=== PATIENT | female | born 1975 | race Caucasian/White ===

== ENCOUNTER 2021-04-14 11:00 | Outpatient (RCR) | payer OTHER, SELFPAY ==
[2021-01-10 09:07] VITALS: PULSE 99
[2021-01-20 19:02] LABS: Glucose Point of Care 329 mg/dl (65-105)
--- NOTE | 2021-01-29 15:21 | PCCPR ---
Sent home not feeling well/lightheadedness and dizziness Kishor here for education class however states the heat was making feel ill. she described as light headed and dizzy. BS 151 and her B/P was 106/64. Gave her a Kandace mist to sip on which didn't help. States the A/c out on their car and ride here is 40 + min. Sent her home no exercise today.
[2021-02-10 17:42] LABS: Glucose Point of Care 78 mg/dl (65-105)
[2021-02-10 17:42] LABS: Glucose Point of Care 75 mg/dl (65-105)
[2021-02-10 17:42] LABS: Glucose Point of Care 92 mg/dl (65-105)
[2021-02-10 17:42] LABS: Glucose Point of Care 76 mg/dl (65-105)
[2021-02-12 16:07] LABS: Glucose Point of Care 225 mg/dl (65-105)
[2021-02-17 16:21] LABS: Glucose Point of Care 166 mg/dl (65-105)
--- NOTE | 2021-02-20 11:54 | PCCPR ---
Absent due to high eat warning
[2021-02-24 15:13] LABS: Glucose Point of Care 379 mg/dl (65-105)
--- NOTE | 2021-03-26 09:57 | PCCPR ---
Patient called to inform the cardiac rehab department that she'll be absent today due to an eye appointment that she had forgotten about. Patient stated she will be here tomorrow.
[2021-04-02 17:29] LABS: Glucose Point of Care 200 mg/dl (65-105)
[2021-04-03 11:16] LABS: Glucose Point of Care 412 mg/dl (65-105)
--- NOTE | 2021-04-03 11:17 | PCCPR ---
Elevated BS sent home Elisabeth here today for her regular class. States her BS was over 300 in the Car. BS rechecked with our meter and was 412. States she had a can of regular soda and was making candy for an event and sampled that also prior to arrival. Sent home due BS greater than our 300 limit.
== END 2021-04-14 14:12 | disposition home or self-care (01) ==
LOC: ANHCPREHAB 11:00
DX: I21.4 Non-ST elevation (NSTEMI) myocardial infarction (principal)
CPT/HCPCS: 82948; 93798

== ENCOUNTER 2023-09-02 12:52 | Observation (INO) | payer OTHER, SELFPAY ==
--- NOTE | ~2023-09-02 | XR_ITS ---
EXAMINATION: XR chest 2V DATE: 09/02/2023 20:37 INDICATION: Cough. Bilateral lower extremity swelling. TECHNIQUE: Frontal and lateral views of the chest were obtained on 3 radiographs. COMPARISON: None. FINDINGS: There are interstitial opacities in the lower lung zones. No pleural effusion or pneumothor ax. Cardiomegaly is noted. There is a left chest pacer/defibrillator with lead in right ventricle. IMPRESSION: 1. Interstitial opacities in the lower lung zones, consistent with mild atelectasis versus mild pulmo nary edema. 2. Cardiomegaly. Reviewed, dictated and finalized at location E. CTOR DATA ARCHITECTURE IMPRESSION: 1. Interstitial opacities in the lower lung zones, consistent with mild atelect asis versus mild pulmonary edema. 2. Cardiomegaly.
--- NOTE | ~2023-09-02 | NM_ITS ---
EXAMINATION: NM lung vent and perfusion DATE: 09/03/2023 12:40 INDICATION: Dyspnea with exertion. Elevated troponin. TECHNIQUE: 24.5 mCi xenon-133 by inhalation and 5.5 mCi Tc-99m MAA by intravenous route. Scintigraph ic images of the chest were obtained. COMPARISON: Chest radiograph dated 09/02/2023 FINDINGS: There is homogeneous radiotracer activity throughout the lungs on the single breath ventilation seque nce. There are no unmatched perfusion defects on the posterior scintigrams. Moderate-sized perfusion defect along the basilar right lower lobe and right middle lobe with matched opacities on the radiogr aphs. There is also a large perfusion defect at the lingula which appears significantly larger than t he corresponding radiographic opacity. Left pectoral photopenic defect corresponding to the partially supply for a cardiac pacemaker/defibrillator. IMPRESSION: 1. Nondiagnostic (low or intermediate probability) for pulmonary embolism. Reviewed, dictated and finalized at location A. O DIVISION LIEUTENANT
--- NOTE | ~2023-09-02 | US_ITS ---
EXAMINATION: US renal BI DATE: 09/03/2023 12:13 INDICATION: Acute kidney injury TECHNIQUE: Multiple grayscale and Doppler ultrasound images of the kidneys were obtained. COMPARISON: None. FINDINGS: The right kidney measures 10.4 x 4.4 x 4.4 cm. The left kidney measures 10.6 x 4.5 x 4.1 cm . The kidneys demonstrate normal parenchymal echogenicity. There is no hydronephrosis. The bladder is normal. IMPRESSION: 1. Normal kidneys without hydronephrosis. Reviewed, dictated and finalized at location B. PATIONAL PHYSICIAN
--- NOTE | ~2023-09-02 | US_ITS ---
EXAMINATION: US venous doppler [facility] DATE: 09/02/2023 19:46 INDICATION: Lower limb swelling. TECHNIQUE: Grayscale ultrasound images without and with compression and Doppler ultrasound images of the bilateral lower extremity veins were obtained. COMPARISON: None. FINDINGS: The visualized portions of right common femoral vein, profunda (deep) femoral vein, femoral vein, pop liteal vein, peroneal veins, posterior tibial veins, and greater saphenous vein outflow are patent. The visualized portions of left common femoral vein, profunda femoral vein, femoral vein, popliteal v ein, peroneal veins, posterior tibial veins, and greater saphenous vein outflow are patent. IMPRESSION: 1. No deep venous thrombosis. Reviewed, dictated and finalized at location E. Y HEAD START TEACHER
[2023-09-02 13:27] VITALS: BP 133/93; PULSE 105; RESP 16; TEMP 36.7; O2SAT 100
--- NOTE | 2023-09-02 17:52 | ECG_ITS ---
Measurements Intervals [place] Rate: 97 P: 52 FL: 151 QRS: -38 QRSD: 102 T: 101 QT: 378 QTc: 481 Interpretive Statements SINUS RHYTHM LEFT ATRIAL ENLARGEMENT [-0.15mV P WAVE IN V1/V2] MARKED LEFT AXIS DEVIATION [QRS AXIS < -30] PREVIOUS ANTERIOR AND INFERIOR mYOCARDIAL INFARCTION ABNORMAL ECG NO PREVIOUS ECG AVAILABLE FOR COMPARISON Electronically Signed On 09-03-2023 7:08:52 NUTS AND BOLTS ASSEMBLER by Craig Jaeger M.D.
--- NOTE | 2023-09-02 17:57 | ED.EXTPRO ---
HPI - Extremity Problem General Chief complaint: Extremity Problem,Nontraumatic Stated complaint: swelling to legs Time Seen by Provider: 09/02/23 17:42 Source: patient Mode of arrival: ambulatory Limitations: no limitations History of Present Illness HPI Narrative: Patient is a 47-year-old female, past medical history of CAD, pacemaker/AICD, CKD, who presents to ED with report of bilateral lower extremity swelling. Patient is somewhat a poor historian. Patient reports she has been dealing with swelling in her lower extremities for last 1 month intermittently. She states she was admitted twice to [facility] within the last month, but states they did nothing for her. She states she was given Lasix while in the hospital, but this was discontinued. She is not sure why. She does not know if she has a history CHF. Reportedly sees several different cardiologists at [facility]. Patient has tried elevating her legs and staying off of them as much as possible, but reports worsening swelling over the last 1 week. Reports pain with prolonged walking, mild SOB w/ exertion. Denies CP, cough or cold sx's, fevers. Related Data Home Medications Medication Instructions Recorded Confirmed aspirin 81 mg tablet 81 mg PO DAILY 01/10/21 01/10/21 carvedilol 25 mg tablet 25 mg PO BID 01/10/21 01/10/21 furosemide 20 mg tablet 20 mg PO DAILY 01/10/21 01/10/21 Allergies Allergy/AdvReac Type Severity Reaction Status Date / Time No Known Allergies Allergy Verified 09/02/23 21:45 Review of Systems Review of Systems: CONSTITUTIONAL: Denies fever, chills, or sweats. ENT: Denies rhinorrhea, congestion, sore throat. CARDIOVASCULAR: See HPI. RESPIRATORY: See HPI GASTROINTESTINAL: Denies abdominal pain, nausea, vomiting. MUSCULOSKELETAL: see HPI. NEUROLOGIC: Denies headache, dizziness, numbness, or weakness. All systems reviewed & are unremarkable except as noted in HPI and below PMFSH Family History Family History Mother Throat cancer Grandparent Diabetes mellitus Sibling Diabetes mellitus Multiple sclerosis Social History Social History Smoking status: Never smoker Exam Narrative: GENERAL: Appears older than stated age, well-nourished, non-toxic, in no acute distress. HEAD: Normocephalic, atraumatic. RESPIRATORY: Airway patent, respirations nonlabored. Coarse lung sounds throughout. Frequent coughing on exam. CARDIOVASCULAR: Borderline tachycardic with regular rhythm without murmurs, rubs, or gallops. Pedal pulses intact, symmetric bilaterally. ABDOMINAL: Soft, nontender, nondistended. Normoactive BS. MUSCULOSKELETAL: Moves all extremities. No gross deformities. 1-2+ pitting edema of lower extremities. No significant tenderness throughout lower extremities. Sensation intact. No erythema, warmth, wounds. Diffuse generalized weakness. SKIN: Warm, dry, normal color. NEURO: A&O X3. Speech clear. Cranial nerves II-XII grossly intact. No ataxic movements. PSYCHIATRIC: Appropriate mood and affect. Normal interaction. Course Vital Signs Vital signs: Vital Signs Temperature 98.0 F 09/02/23 13:27 Pulse Rate 105 H 09/02/23 13:27 Respiratory Rate 16 09/02/23 13:27 Blood Pressure 133/93 H 09/02/23 13:27 Pulse Oximetry 100 09/02/23 13:27 Oxygen Delivery Room Air 09/02/23 13:27 Temperature 98.0 F 09/02/23 13:27 Pulse Rate 98 09/03/23 01:54 Respiratory Rate 15 09/03/23 01:54 Blood Pressure 138/101 H 09/03/23 01:54 Pulse Oximetry 100 09/03/23 01:54 Oxygen Delivery Room Air 09/02/23 13:27 MDM - Extremity (Nontraumatic) MDM Narrative Medical decision making narrative: Patient presented to the ED with 1 month hx of lower extremity edema, worsening over last 1 week. Reportedly recently admitted at outside hospital for similar. Unknown what occurred while
[2023-09-02 19:27] LABS: Magnesium 2.3 mg/dL (1.6-2.3)
[2023-09-02 19:28] LABS: INR 1.1
[2023-09-02 19:29] LABS: Partial Thromboplastin Time 25.8 SECONDS (22.3-36.8)
[2023-09-02 19:32] LABS: Alanine Aminotransferase 25 U/L (6-35); Albumin Level 3.3 g/dL (3.5-5.1); Alkaline Phosphatase 138 U/L (38-126); Anion Gap 13 mmol/L (8-16); Aspartate Amino Transferase 32 U/L (14-36); Bilirubin,Total 0.8 mg/dL (0.2-1.3); Blood Urea Nitrogen 48 mg/dL (7-17); Calcium 8.4 mg/dL (8.4-10.2); Carbon Dioxide 15 mmol/L (22-30); Chloride 101 mmol/L (98-107); Estimated Glomerular Filt Rate 19; Glucose 332 mg/dL (65-110); Potassium 4.7 mmol/L (3.4-5.0); Sodium 129 mmol/L (137-145)
[2023-09-02 19:41] LABS: NT Pro B Type Natriuretic Pept > 30000 pg/mL (19.9-100)
[2023-09-02 19:52] VITALS: BP 128/99; PULSE 103; RESP 20; O2SAT 96
--- NOTE | 2023-09-02 20:13 | ECG_ITS ---
Measurements Intervals [place] Rate: 99 P: 57 DE: 159 QRS: -35 QRSD: 102 T: 128 QT: 368 QTc: 474 Interpretive Statements SINUS RHYTHM LEFT ATRIAL ENLARGEMENT [-0.15mV P WAVE IN V1/V2] MARKED LEFT AXIS DEVIATION [QRS AXIS < -30] PREVIOUS ANTERIOR AND INFERIOR INFARCTION ABNORMAL ECG COMPARED TO ECG 09/02/2023 18:11:45 NO SIGNIFICANT CHANGES Electronically Signed On 09-03-2023 7:14:25 MILLINERY DEPARTMENT MANAGER by Craig Jaeger M.D.
[2023-09-02 21:30] LABS: Basophils Absolute Auto 0.1 K/mm3 (0.0-0.1); Basophils Percent Auto 0.8 % (0.2-1.2); Eosinophils Absolute Auto 0.1 K/mm3 (0-0.3); Eosinophils Percent Auto 1.3 % (0-4.4); Hematocrit 35.2 % (37.0-47.0); Hemoglobin 10.4 g/dL (12.0-15.0); Immature Granulocyte Absolute 0.05 K/mm3 (0.00-0.031); Immature Granulocyte Percent A 0.5 % (0-0.5); Lymphocytes Absolute Auto 1.62 K/mm3 (0.9-3.2); Lymphocytes Percent Auto 15.7 % (18.3-44.2); Mean Corpuscular HGB Conc 29.5 g/dl (32-36); Mean Corpuscular Hemoglobin 24.2 pg (26-34); Mean Corpuscular Volume 81.9 fl (80-100); Mean Platelet Volume 10.6 fl (7.4-10.4); Monocytes Absolute Auto 0.6 K/mm3 (0.1-0.6); Monocytes Percent Auto 6.1 % (2.6-8.5); Neutrophils Absolute Auto 7.8 K/mm3 (1.3-6.7); Neutrophils Percent Auto 75.6 % (45.5-73.1); Platelet Count Result 280 k/mm3 (150-375); Red Cell Distribution Width 16.2 % (11.5-14.5); White Blood Count 10.3 K/mm3 (4.5-10.0)
[2023-09-02 21:44] VITALS: BP 145/100; PULSE 98; RESP 20; O2SAT 100
--- NOTE | 2023-09-02 21:44 | PM.IMHP ---
H&P: HPI History of Present Illness Date/Time: 09/02/23 21:44 Chief Complaint: leg swelling Narrative: This is a 47-year-old female with past medical history significant for hypertension, diabetes mellitus. Patient presents to the emergency room due to worsening bilateral lower extremity swelling denies shortness of breath, denies chest pain, no palpitations no dizziness no lightheadedness no PND no orthopnea no fevers no rigors no chills had recent admission to outside facility. Patient states he has had poor appetite poor per orally intake and high blood sugars. Preliminary workup was significant for bilateral lower extremity ultrasound Doppler was negative for acute DVT, a chest x-ray showed pulmonary edema. Chemistry panel was significant for sodium 129 BUN 48 creatinine 2.7 troponins x2 6.5 and 6.7 respectively. Patient has been admitted for further evaluation management and treatment. EXAMINATION: XR chest 2V DATE: 09/02/2023 20:37 INDICATION: Cough. Bilateral lower extremity swelling. TECHNIQUE: Frontal and lateral views of the chest were obtained on 3 radiographs. COMPARISON: None. FINDINGS: There are interstitial opacities in the lower lung zones. No pleural effusion or pneumothorax. Cardiomegaly is noted. There is a left chest pacer/defibrillator with lead in right ventricle. IMPRESSION: 1. Interstitial opacities in the lower lung zones, consistent with mild atelectasis versus mild pulmonary edema. 2. Cardiomegaly. EXAMINATION: US venous doppler LE BI DATE: 09/02/2023 19:46 INDICATION: Lower limb swelling. TECHNIQUE: Grayscale ultrasound images without and with compression and Doppler ultrasound images of the bilateral lower extremity veins were obtained. COMPARISON: None. FINDINGS: The visualized portions of right common femoral vein, profunda (deep) femoral vein, femoral vein, popliteal vein, peroneal veins, posterior tibial veins, and greater saphenous vein outflow are patent. The visualized portions of left common femoral vein, profunda femoral vein, femoral vein, popliteal vein, peroneal veins, posterior tibial veins, and greater saphenous vein outflow are patent. IMPRESSION: 1.? No deep venous thrombosis. [facility] Family History Family History Mother Throat cancer Grandparent Diabetes mellitus Sibling Diabetes mellitus Multiple sclerosis Social History Social History Smoking status: Never smoker Alcohol intake: never Substance use: current Substance use type: does not use Do You Feel Safe in your Home?: Yes Lack of Transportation: No Lack of Food: Never True Current Housing: I Have Housing Concerned About Future Housing: No Difficulty Paying Gas/Electric Bills: No Difficulty Paying for Meds: No Currently Unemployed: No Education: High School Diploma/GED Difficulty w/ Childcare or Family Care: No Spiritual care concerns: No Meds Home Medications and Allergies Home Medications Medication Instructions Recorded Confirmed Type aspirin 81 mg tablet 81 mg PO DAILY 01/10/21 09/03/23 History furosemide 20 mg tablet 20 mg PO DAILY 01/10/21 09/03/23 History atorvastatin 40 mg tablet 40 mg PO DAILY 09/03/23 09/03/23 History empagliflozin 10 mg tablet 10 mg PO DAILY 09/03/23 09/03/23 History (Jardiance) ferrous sulfate 325 mg (65 mg 325 mg PO DAILY 09/03/23 09/03/23 History iron) tablet (FeroSul) hydralazine 50 mg tablet 50 mg PO DAILY 09/03/23 09/03/23 History insulin glargine 100 unit/mL (3 10 unit subcut HS 09/03/23 09/03/23 History mL) subcutaneous pen (Lantus Solostar U-100 Insulin) isosorbide dinitrate 10 mg tablet 10 mg PO TID 09/03/23 09/03/23 History Allergies Allergy/AdvReac Type Severity Reaction Status Date / Time No Known Allergies Allergy Verified 09/02/23 21:45 Vital Signs Vital Signs -
[2023-09-02 21:45] LABS: Hypochromasia 1+ (NORMAL); Ovalocytes 1+ (NORMAL); Platelet Estimate Adequate (Adequate); Schistocytes None Seen (NORMAL)
[2023-09-02] MEDS: HEPARIN SODIUM 5,000 UNITS/ML VIAL 4000 UNITS IV PUSH (22:07)
[2023-09-02] MEDS: FUROSEMIDE INJ 40 MG/4 ML VIAL IV PUSH (22:07)
[2023-09-02] MEDS: HEPARIN SOD/D5W 100 UNITS/ML 25,000 UNITS/250 ML BAG 8 UNITS IV CONT (22:25)
[2023-09-03] VITALS (16 sets, daily range): BP systolic 116–138; BP diastolic 69–101; PULSE 86–143; RESP 15–23; TEMP 36.3–36.7; O2SAT 95–100; BMI 26.4
--- NOTE | 2023-09-03 01:14 | PC.NURSE ---
this RN took over care of pt @[id number]
--- NOTE | 2023-09-03 03:52 | ADMGEN ---
This patient, Elisabeth Herrera, was admitted to IMU Room 213-01. Patient/family oriented to hospital policies and general routines including ID bracelet, bed and alarms, visiting hours, pain management, procedures, bathroom and other care routines, personal items, smoking policy, room service/diet, and visiting hours. Information on how to activate the Rapid Response Team has been discussed. Patient/Family are encouraged to report perceived risks to care and to ask questions if they do not understand what they are told or what they should do.
[2023-09-03 05:02] LABS: Basophils Absolute Auto 0.1 K/mm3 (0.0-0.1); Basophils Percent Auto 1.1 % (0.2-1.2); Eosinophils Absolute Auto 0.1 K/mm3 (0-0.3); Eosinophils Percent Auto 1.4 % (0-4.4); Hematocrit 33.8 % (37.0-47.0); Immature Granulocyte Absolute 0.06 K/mm3 (0.00-0.031); Immature Granulocyte Percent A 0.7 % (0-0.5); Lymphocytes Absolute Auto 1.33 K/mm3 (0.9-3.2); Lymphocytes Percent Auto 15.2 % (18.3-44.2); Mean Corpuscular HGB Conc 29.6 g/dl (32-36); Mean Corpuscular Hemoglobin 24.5 pg (26-34); Mean Corpuscular Volume 82.8 fl (80-100); Mean Platelet Volume 11.2 fl (7.4-10.4); Monocytes Absolute Auto 0.4 K/mm3 (0.1-0.6); Monocytes Percent Auto 4.9 % (2.6-8.5); Neutrophils Absolute Auto 6.7 K/mm3 (1.3-6.7); Neutrophils Percent Auto 76.7 % (45.5-73.1); Platelet Count Result 258 k/mm3 (150-375); Red Blood Count 4.08 M/mm3 (4.2-5.4); Red Cell Distribution Width 16.2 % (11.5-14.5); White Blood Count 8.8 K/mm3 (4.5-10.0)
[2023-09-03 05:15] LABS: Partial Thromboplastin Time 65.9 SECONDS (22.3-36.8)
[2023-09-03 05:30] LABS: Platelet Estimate Adequate (Adequate)
[2023-09-03 05:33] LABS: Anisocytosis 1+ (NORMAL); Burr Cells 2+ (NORMAL); Microcytosis 1+ (NORMAL); Ovalocytes 1+ (NORMAL); Poikilocytosis 1+ (NORMAL); Schistocytes None Seen (NORMAL)
[2023-09-03] MEDS: HEPARIN SODIUM 5,000 UNITS/ML VIAL 2500 UNITS IV PUSH (05:41)
--- NOTE | 2023-09-03 06:00 | ECHO_ITS ---
Patient Info Name: Elisabeth Herrera Age: 47 years : 1975 Gender: Female Ht: 65 in Wt: 140 lbs BSA: 1.71 m2 HR: 98 bpm BP: 123 / 93 mmHg Heart Rhythm: Sinus Rhythm Technical Quality: Good Exam Date: 09/03/2023 9:47 AM Exam Location: Echo Lab Patient Status: Outpatient Admit Date: 09/03/2023 Staff Ordering Physician: Jenifer Buchanan PA-C Director Of Teenage Activities: Cristian Woods RDCS Attending Provider: Felisha Polanco MD Referring Physician: Dewayne MURPHY; Exam Type: CA echo dop color flow w con Study Info Indications - acut chf, elevated bnp/troponin Complete two-dimensional, color flow and Doppler transthoracic echocardiogram is performed with contrast to opacify the left ventricle and to improve the deliniation of the left ventricle endocardial borders. Contrast/Agitated Saline Contrast/Ag. Saline: Definity Amount: 3.00 ml Summary 1. Severe left ventricular dilation with profoundly depressed systolic contractility. 2. Dilated left atrium. 3. Small amount of MR related to annular dilation. 4. Very small pericardial effusion. Left Ventricle Left ventricular chamber dimension is severely enlarged. Left ventricular systolic function is severely reduced, estimated at 15-20%. The left ventricular diastolic function is grade I diastolic dysfunction. Right Ventricle Right ventricular chamber dimension is normal. Left Atria Left atrial chamber dimension is moderately enlarged. Right Atria Right atrial chamber dimension is normal. Aortic Valve The aortic valve is normal. Pulmonic Valve The pulmonic valve is normal. Mitral Valve The mitral valve has normal leaflets. There is trace mitral valve regurgitation. Tricuspid Valve The tricuspid valve leaflets are normal. There is mild tricuspid valve regurgitation. Pericardium/Pleural The pericardium appears normal. Aorta The aortic root size at the sinus of Valsalva is normal. Left Ventricular Outflow Tract Name Value Normal LVOT 2D LVOT Diameter 1.97 cm LVOT Doppler LVOT Peak Gradient 2 mmHg LVOT Mean Gradient 1 mmHg LVOT VTI 10.17 cm LVOT VTI/AV VTI Ratio 0.51 LVOT Stroke Volume 31.10 ml LVOT CO 2.96 l/min LVOT CI 1.73 L/min/m2 Pulmonic Valve Name Value Normal RVOT Doppler RVOT Peak Gradient 1 mmHg PV Doppler PV Peak Gradient 1 mmHg Mitral Valve Name Value Normal MV Doppler
[2023-09-03] MEDS: hydrALAZINE HCL 50 MG TABLET PO ×2 (08:49→13:03)
[2023-09-03] MEDS: ATORVASTATIN 40 MG TABLET PO (08:49)
[2023-09-03] MEDS: FUROSEMIDE INJ 40 MG/4 ML VIAL IV PUSH ×2 (08:49→22:29)
[2023-09-03] MEDS: ISOSORBIDE DINITRATE 10 MG TABLET PO ×2 (08:50→13:05)
[2023-09-03] MEDS: ASPIRIN 81 MG ENTERIC TABLET PO (08:50)
[2023-09-03] MEDS: FERROUS SULFATE 325 MG TABLET DR BY MOUTH (08:50)
[2023-09-03] MEDS: PERFLUTREN LIPID MICROSPHERES 1.5 ML VIAL DILUTED TO 10 ML TOTAL VOLUME IV PUSH (09:50)
--- NOTE | 2023-09-03 11:29 | IVDEFINITY ---
Prior to administration of IV Definity the patient was educated on the risks and benefits of the imaging enhancing agent including potential adverse side effects. The patient verbalized understanding. Allergies were verified. No exclusion criteria were identified and at least one of the following inclusion criteria were met: 1) physician request, 2) patient technically difficult to image (per the [place] [employer] Echocardi[employer] guidelines of two or more segments not discernable within the apical view), or 3) questionable left ventricular function. ?
[2023-09-03 11:33] LABS: Partial Thromboplastin Time 51.6 SECONDS (22.3-36.8)
--- NOTE | 2023-09-03 12:02 | PM.CNNEP ---
Assessment and Plan Assessment and plan (1) Chronic kidney disease, stage IV (severe): Code(s): N18.4 - Chronic kidney disease, stage 4 (severe) Status: Chronic Assessment and Plan: creatinine has fluctuated to extremes in the last year in the last 6 months, seems to be running around 2.5 - 3.2mg/dl due to a combination of diabetes, vascular disease, and cardiorenal syndrome with the need for chronic diuretic therapy her creatinine has run as high as 4.0mg/dl on previous hospitalizations (2) Bilateral edema of lower extremity: Code(s): R60.0 - Localized edema Status: Chronic Assessment and Plan: acute on chronic due to #3 and #4 ongoing diuresis may have to accept to degree of LE edema no matter what... (3) Ischemic cardiomyopathy: Code(s): I25.5 - Ischemic cardiomyopathy Status: Chronic Assessment and Plan: as already documented by previous/recent Echo follows with Cardiology at [facility] Cardiology consulted (4) Acute CHF (congestive heart failure): Qualifiers: Heart failure type: unspecified Qualified Code(s): I50.9 - Heart failure, unspecified Code(s): I50.9 - Heart failure, unspecified Status: Acute Assessment and Plan: on IV diuretics follow I/Os, daily weights,and respiratory status Cardiology consulted (5) T2DM (type 2 diabetes mellitus): Code(s): E11.9 - Type 2 diabetes mellitus without complications Status: Chronic Assessment and Plan: follow accu-cheks glycemic control per hospitalists I will continue the follow the patient with you while she remains hospitalized and make further recommendations as deemed necessary. Thank you for allowing me to participate in the care of this patient. History of Present Illness Reason for Consult Consult date: 09/03/23 Reason for consult: chronic renal failure Chief Complaint Chief complaint: Acute CHF,Elevated Troponin,BLE Swelling History of Present Illness Narrative: A great majority of the history is obtained from reviewing the electronic medical records as well as review of her previous hospitalizations along with discussion with the physician/ nurses involved in the patient's care as is sometimes difficult to get a full and complete history from the patient. The patient is a 47-year-old female with a past medical history as outlined below who presented to [facility] Emergency room due to complaints of increasing lower extremity edema. The patient reports that for the last 1-2 months she has noticed increasing lower extremity edema that is making it more difficult for her to ambulate. She apparently was just recently hospitalized at [facility] for the same issue but she does not believe anything with none of significance as she feels that the lower extremity edema is just as bad as it was when she was discharged. Furthermore, she has noticed that her blood sugars have been running extremely high and this in the context of her worsening lower extremity edema led to her presentation back to the emergency room but this time at [facility]. Workup and evaluation in the emergency room demonstrated elevated troponins but remain flat in association with the elevated BNP consistent with a known history of ischemic cardiomyopathy. Her EKG did not show any acute ischemic changes. Routine blood test demonstrated labs consistent with her known history of chronic kidney disease and relative anemia. Given her severe /significant lower extremity edema and findings consistent with what appeared to be in acute CHF exacerbation, the patient was given IV diuretics and subsequently admitted to the hospital for further evaluation and therapy. Since her admission, she still is not Laila if can improvement in her lower extremity edema but it has been less than 24 hr since her admission and use of IV dye or icteric He. Renal con
--- NOTE | 2023-09-03 12:22 | PM.CNCAR ---
Assessment and Plan Assessment and plan (1) Ischemic cardiomyopathy: Code(s): I25.5 - Ischemic cardiomyopathy Status: Acute Plan This is a 47-year-old lady with chronic coronary artery disease, chronic ischemic cardiomyopathy also with chronic kidney disease that appears to be stable. Her heart failure physicians at [facility] have her on appropriate medical regimen for this. She has a it lower extremity edema for the last 1-2 months which is her principal concern. I would agree with continuing her medical regimen and giving her intravenous furosemide at this time. Because of the very poor GFR I will add low-dose dopamine to the regimen this may prompt and establish more brisk diuresis. She does not have any left-sided failure spent a long time explaining to the patient and her family that a patient in her situation would many times have to accept some degree of chronic edema as we sometimes cannot resolve all of this. In addition to this we discussed that it would be more beneficial for her to present to hospital where her established casting chipper are available. She indicates the reason she came here is because she cannot afford CAB care over to [facility] and her is ill who has been unable to take her over there. Will follow her case with you while she is at the hospital. She is being held NPO which is her other principal complaint. Presumably this is because her troponin level is elevated. I am not planning an angiogram in this situation and therefore she does not have to be kept NPO. I did speak to her nurse about this Craig Jaeger MD [facility] History of Present Illness History of Present Illness Consult date/time: 09/03/23 12:22 Reason For Visit: Acute CHF,Elevated Troponin,BLE Swelling Narrative: This is a 47-year-old woman who unfortunately has a history of a relatively severe ischemic cardiomyopathy and is being seen at the request of the hospitalist because of admission with lower extremity edema. Patient is unknown to me prior to this consultation. She does see casting chipper in the Heart failure Department and electrophysiology arrhythmia Center at [facility]. She states that for about 1-2 months she has been noticing problematic increasing lower extremity edema. She says that recently a week or 2 ago she was hospitalized elsewhere in [place] for this she does not believe much was done her improved and she was discharged within 48 hours and from her perspective her edema was on improved. Her family brought her to this hospital's emergency room yesterday for these problems and she was admitted. She also noted that her blood glucose was extremely high, in excess of 400. She offers no history of chest pain pressure heaviness she is not having any orthopnea or PND. Her admitting chest x-ray is essentially clear. Her neck treated peptide levels are rather high and her troponin levels are significantly elevated but flat. Patient is ECG demonstrates evidence of sinus rhythm with previous anterior and inferior infarctions. She has never been to [facility] before so I do not have any old ECGs to compare. She also has stage III in sum previous notes stage 4 chronic kidney disease. She has been given intravenous furosemide since admission she does not believe there has been much improvement in her edema. Her baseline medical regimen consists of atorvastatin, furosemide 20 mg daily, hydralazine 50 mg daily and isosorbide 10 mg daily as well as metoprolol 20 mg daily. Her metoprolol has not been ordered at this time. Lab data demonstrates poor renal function with a BUN of 48 and a creatinine of 2.7. According to notes that I have in the record this is essentially her baseline. Her last cardiac catheterization that was done by her casting chipper at [facility] in 2021 demonstrated severe disease essentially occlusion of her LAD from the midportion down she has occlusion of 1st margin
[2023-09-03] MEDS: DOPamine 400 MG/D5W 250 ML 400 MG/250 ML BAG 6.56 MG IV CONT (13:05)
[2023-09-03] MEDS: ONDANSETRON INJ 4 MG/2 ML VIAL IV PUSH ×2 (15:45→22:41)
--- NOTE | 2023-09-03 17:28 | PM.IMPN ---
Progress Note: A&P Assessment and Plan (1) Elevated troponin: Code(s): R79.89 - Other specified abnormal findings of blood chemistry Status: Acute Assessment and Plan: Admit to IMU Patient started on heparin drip Cardiology consult Supportive care Continue to monitor (2) Acute CHF (congestive heart failure): Qualifiers: Heart failure type: unspecified Qualified Code(s): I50.9 - Heart failure, unspecified Code(s): I50.9 - Heart failure, unspecified Status: Acute Assessment and Plan: Echocardiogram in a.m. Daily intake and output Diurese as needed Cardiology: She does not have any left-sided failure spent a long time explaining to the patient and her family that a patient in her situation would many times have to accept some degree of chronic edema as we sometimes cannot resolve all of this.? In addition to this we discussed that it would be more beneficial for her to present to hospital where her established special order jeweler are available.? She indicates the reason she came here is because she cannot afford CAB care over to [facility] and her is ill who has been unable to take her over there.? Will follow her case with you while she is at the hospital.? She is being held NPO which is her other principal complaint.? Presumably this is because her troponin level is elevated.? I am not planning an angiogram in this situation? (3) Hyponatremia: Code(s): E87.1 - Hypo-osmolality and hyponatremia Status: Acute Assessment and Plan: Patient is on loop diuretics Continue to monitor (4) Acute renal failure: Code(s): N17.9 - Acute kidney failure, unspecified Assessment and Plan: Will obtain renal ultrasound Likely pre renal azotemia Will obtain Nephrology consult Patient on diuretics at home (5) T2DM (type 2 diabetes mellitus): Code(s): E11.9 - Type 2 diabetes mellitus without complications Status: Acute Assessment and Plan: Holding empagliflozin GFR less than 25% Continue insulin Accu-Cheks AC and HS Plan Will DC tomorrow, with plans to f/u her special order jeweler in [place] Time Spent With Patient Time with patient: 25 - 35 minutes Subjective Date/time seen: 09/03/23 17:28 Interval history: Seen and examined; being managed for fluid overload with NsTEMI No plans for cath per cardiology. Review of Systems Constitutional: Constitutional: Reports fatigue and Reports lethargy Eyes: Eyes: Reports as per HPI and Reports no additional eye complaints ENT: Reports system reviewed and no additional complaints, except as documented, Reports Normal hearing present and Denies dysphagia Cardiovascular: Cardiovascular: Reports pedal edema and Reports leg edema Respiratory: Respiratory: Reports dyspnea Gastrointestinal: Gastrointestinal: Reports no additional gastrointestinal complaints, Denies hematochezia and Denies constipation Musculoskeletal: Musculoskeletal: Reports no additional musculoskeletal complaints Integumentary/Breasts: Skin/Breast: Reports dry skin Neurologic: Reports system reviewed and no additional complaints, except as documented, Denies Abnormal speech present and Denies abnormal gait Psychiatric: Psychiatric: Reports no additional psychiatric complaints Exam Narrative: laying in a stretcher Const: General: cooperative, comfortable, no acute distress, well developed, alert, awake, ill appearing chronically, tired appearing, average body habitus and edematous Nutritional Appearance: average body habitus and edematous Orientation/consciousness: patient oriented x3 HENMT: Head: normal to inspection, normocephalic and atraumatic Ears: hearing grossly normal bilaterally Face/Nose/Sinus: normal facial exam Face and sinus: normal facial exam Eyes: General: appearance normal, both eyes and all related structures Pupils: Equal, round and reactive pupils present EOM: EOMs intact bilaterally Ne
[2023-09-03 18:07] LABS: Glucose Point of Care 333 mg/dl (65-105)
[2023-09-03] MEDS: INSULIN ASPART (*BKC) 100 UNITS/ML SUB-Q (22:37)
[2023-09-03] MEDS: INSULIN GLARGINE (*BKC) 100 UNITS/ML 10 UNITS SUB-Q (22:37)
[2023-09-03 23:34] LABS: Glucose Point of Care 393 mg/dl (65-105)
[2023-09-04] VITALS (15 sets, daily range): BP systolic 125–155; BP diastolic 81–98; PULSE 84–109; RESP 12–20; TEMP 36.2–36.7; O2SAT 97–100
[2023-09-04 05:45] LABS: Basophils Percent Auto 0.2 % (0.2-1.2); Hematocrit 33.9 % (37.0-47.0); Hemoglobin 10.3 g/dL (12.0-15.0); Immature Granulocyte Absolute 0.05 K/mm3 (0.00-0.031); Immature Granulocyte Percent A 0.6 % (0-0.5); Lymphocytes Absolute Auto 0.52 K/mm3 (0.9-3.2); Lymphocytes Percent Auto 6.5 % (18.3-44.2); Mean Corpuscular HGB Conc 30.4 g/dl (32-36); Mean Corpuscular Hemoglobin 24.4 pg (26-34); Mean Corpuscular Volume 80.3 fl (80-100); Mean Platelet Volume 10.9 fl (7.4-10.4); Monocytes Absolute Auto 0.2 K/mm3 (0.1-0.6); Monocytes Percent Auto 2.7 % (2.6-8.5); Neutrophils Absolute Auto 7.3 K/mm3 (1.3-6.7); Platelet Count Result 261 k/mm3 (150-375); Red Blood Count 4.22 M/mm3 (4.2-5.4); Red Cell Distribution Width 16.4 % (11.5-14.5); White Blood Count 8.1 K/mm3 (4.5-10.0)
[2023-09-04 05:55] LABS: Alanine Aminotransferase 32 U/L (6-35); Albumin Level 2.9 g/dL (3.5-5.1); Alkaline Phosphatase 119 U/L (38-126); Anion Gap 14 mmol/L (8-16); Aspartate Amino Transferase 65 U/L (14-36); Bilirubin,Total 1.7 mg/dL (0.2-1.3); Blood Urea Nitrogen 50 mg/dL (7-17); Calcium 8.9 mg/dL (8.4-10.2); Carbon Dioxide 15 mmol/L (22-30); Chloride 102 mmol/L (98-107); Estimated CRCL calculation 19 ml/min; Estimated Glomerular Filt Rate 18; Glucose 393 mg/dL (65-110); Potassium 4.6 mmol/L (3.4-5.0); Sodium 131 mmol/L (137-145)
[2023-09-04] MEDS: INSULIN ASPART (*BKC) 100 UNITS/ML SUB-Q (09:01)
[2023-09-04] MEDS: FERROUS SULFATE 325 MG TABLET DR BY MOUTH (09:01)
[2023-09-04] MEDS: hydrALAZINE HCL 50 MG TABLET PO ×2 (09:02→11:14)
[2023-09-04] MEDS: ISOSORBIDE DINITRATE 10 MG TABLET PO ×2 (09:02→12:46)
[2023-09-04] MEDS: ATORVASTATIN 40 MG TABLET PO (09:02)
[2023-09-04] MEDS: ASPIRIN 81 MG ENTERIC TABLET PO (09:02)
[2023-09-04] MEDS: METOPROLOL SUCCINATE EXT REL 25 MG TABCR PO (09:03)
[2023-09-04] MEDS: FUROSEMIDE INJ 40 MG/4 ML VIAL IV PUSH (09:04)
--- NOTE | 2023-09-04 09:41 | PM.PNCARD ---
Progress Note: A&P Assessment and Plan (1) Ischemic cardiomyopathy: Code(s): I25.5 - Ischemic cardiomyopathy Status: Acute Assessment and Plan: Continue IV furosemide. Did not tolerate dopamine. In my opinion, renal function is worsening, EF is very poor, significantly elevated troponins at presentation would indicate a recent coronary event, she very well may worsen yet before improving and she was intolerant to inotrope therapy yesterday. Therefore, would recommend transferring to [facility] where her heart failure specialists are. (2) Acute CHF (congestive heart failure): Qualifiers: Heart failure type: unspecified Qualified Code(s): I50.9 - Heart failure, unspecified Code(s): I50.9 - Heart failure, unspecified Status: Acute Assessment and Plan: Continue IV diuresis. Continue isosorbide, hydralazine. Continue metoprolol. (3) CKD (chronic kidney disease): Qualifiers: Chronic kidney disease stage: unspecified stage Qualified Code(s): N18.9 - Chronic kidney disease, unspecified Code(s): N18.9 - Chronic kidney disease, unspecified Status: Acute Assessment and Plan: Creatinine 2.8 (4) CAD (coronary artery disease): Code(s): I25.10 - Atherosclerotic heart disease of [place] coronary artery without angina pectoris Status: Acute Assessment and Plan: Significantly elevated troponin upon admission but down trending. Concern for recent significant event Subjective Date/time seen: 09/04/23 09:41 Interval history: This is a 47-year-old lady with chronic coronary artery disease, chronic ischemic cardiomyopathy also with chronic kidney disease that appears to be stable.? Her heart failure physicians at [facility] have her on appropriate medical regimen for this. Date of service 09/04/2023: Still feels poorly. Has significant lower extremity swelling. Nauseated and vomited last night Review of Systems Constitutional: Constitutional: Reports fatigue and Reports lethargy Eyes: Eyes: Reports no additional eye complaints ENT: Reports system reviewed and no additional complaints, except as documented Cardiovascular: Cardiovascular: Reports leg edema and Reports dyspnea on exertion Respiratory: Respiratory: Reports dyspnea on exertion Gastrointestinal: Gastrointestinal: Reports no additional gastrointestinal complaints Musculoskeletal: Musculoskeletal: Reports no additional musculoskeletal complaints Integumentary/Breasts: Skin/Breast: Reports system reviewed and no additional complaints, except as docu Neurologic: Reports system reviewed and no additional complaints, except as documented Endocrine: Endocrine: Reports no additional endocrine complaints and Reports fatigue Hematologic/Lymphatic: Hematologic/Lymphatic: Reports no additional hematologic/lymphatic complaints Allergic/Immunologic: Allergic/Immunologic: Reports no additional allergic/immunologic complaints Exam Const: General: comfortable HENMT: Mouth: Yes moist mucous membranes Eyes: Sclera: sclerae normal Neck: Neck: supple and no JVD Other: Elevated jugular venous pressure about 2-3 cm above the angle of [place] Resp: Effort & Inspection: normal respiratory effort Auscultation: clear to auscultation bilaterally Other: Breath sounds are clear no rales or rhonchi Cardio: Rate: regular rate Rhythm: regular rhythm Other: PMI is enlarged and laterally displaced S3 is noted GI: Auscultation: normal bowel sounds Skin: General skin exam: normal color Neuro: Speech: normal speech Other: Alert and oriented x3 Extrem: Other: 2+ bilateral extremity edema Psych: Affect: normal affect Objective Data Vital Signs Vital Signs: Vital Signs - 24 hr 09/03/23 10:00 09/03/23 12:00 09/03/23 13:05 Temperature Pulse Rate 97 100 106 H Respiratory Rate Blood Pressure 130/84 Pulse Oximetry Ox
--- NOTE | 2023-09-04 10:03 | ECG_ITS ---
Measurements Intervals Connel[place] Rate: 103 P: 62 MA: 164 QRS: -37 QRSD: 102 T: 100 QT: 363 QTc: 476 Interpretive Statements SINUS TACHYCARDIA MARKED LEFT AXIS DEVIATION [QRS AXIS < -30] LOW QRS VOLTAGE IN EXTREMITY LEADS [QRS DEFLECTION < 0.5 mV IN LIMB LEADS] ANTERIOR MYOCARDIAL INFARCTION, AGE UNDETERMINED INFERIOR MYOCARDIAL INFARCTION, AGE UNDETERMINED ABNORMAL ECG COMPARED TO ECG 09/02/2023 20:16:45 SINUS TACHYCARDIA NOW PRESENT Electronically Signed On 09-04-2023 10:21:57 PATROL CAPTAIN by Dutch Constantino M.D.
[2023-09-04] MEDS: ONDANSETRON INJ 4 MG/2 ML VIAL IV PUSH (10:12)
--- NOTE | 2023-09-04 10:48 | PM.PNNEP ---
Progress Note: A&P Assessment and Plan (1) Chronic kidney disease, stage IV (severe): Code(s): N18.4 - Chronic kidney disease, stage 4 (severe) Status: Chronic Assessment and Plan: creatinine has fluctuated to extremes in the last year in the last 6 months, seems to be running around 2.5 - 3.2mg/dl due to a combination of diabetes, vascular disease, and cardiorenal syndrome with the need for chronic diuretic therapy her creatinine has run as high as 4.0mg/dl on previous hospitalizations (2) Bilateral edema of lower extremity: Code(s): R60.0 - Localized edema Status: Chronic Assessment and Plan: acute on chronic due to #3 and #4 ongoing diuresis may have to accept to degree of LE edema no matter what... (3) Ischemic cardiomyopathy: Code(s): I25.5 - Ischemic cardiomyopathy Status: Chronic Assessment and Plan: as already documented by previous/recent Echo follows with Cardiology at [facility] Cardiology following (4) Acute CHF (congestive heart failure): Qualifiers: Heart failure type: unspecified Qualified Code(s): I50.9 - Heart failure, unspecified Code(s): I50.9 - Heart failure, unspecified Status: Acute Assessment and Plan: on IV diuretics follow I/Os, daily weights,and respiratory status Cardiology following (5) T2DM (type 2 diabetes mellitus): Code(s): E11.9 - Type 2 diabetes mellitus without complications Status: Chronic Assessment and Plan: follow accu-cheks glycemic control per hospitalists Will continue to follow. Subjective Date/time seen: 09/04/23 10:48 Interval history: Follow-up for chronic renal insufficiency/kidney disease Creatinine slightly worse with ongoing therapy/interventions and diuresis has not been very successful; Cardiology recommending transfer to [facility] where her hardwood floor layer are located for more directed therapy. Exam Narrative: General: middle aged female in mild distress Heart: normal S1 and S2; no rub Lungs: bibasilar crackles Abdomen: soft, nontender, nondistended, positive bowel sounds Extremities: no cyanosis or clubbing; 2+ edema Skin: warm and dry Objective Data Vital Signs Vital Signs: Vital Signs Temp Pulse Resp BP Pulse Ox O2 Del Method 09/04/23 10:00 102 H 09/04/23 08:00 102 H 09/04/23 09:03 98 09/04/23 07:50 98.0 F 100 16 125/81 97 09/04/23 06:00 84 09/04/23 04:00 108 H 09/04/23 04:00 109 H 20 99 Room Air 09/04/23 02:00 105 H 09/04/23 00:00 106 H 09/03/23 22:00 107 H 09/03/23 20:00 108 H 09/04/23 00:00 106 H 20 98 Room Air 09/03/23 20:00 106 H 20 100 Room Air 09/04/23 03:38 97.1 F L 109 H 20 155/98 H 99 09/03/23 23:18 97.7 F 106 H 20 130/69 98 09/03/23 20:16 97.8 F 106 H 20 132/89 100 09/03/23 18:00 105 H Intake/Output Intake/Output: Intake & Output 09/01/23 09/02/23 09/03/23 09/04/23 23:59 23:59 23:59 23:59 Intake Total 245 Output Total 225 600 Balance 20 -600 Meds/Results Medications: Active Medications Generic Name Dose Route Start Last Admin Trade Name Freq PRN Reason Stop Dose Admin Aspirin 81 mg 09/03/23 09:00 09/04/23 09:02 Aspirin 81 Mg Enteric Tablet PO 81 mg QAM TIM Administration Atorvastatin Calcium 40 mg 09/03/23 09:00 09/04/23 09:02 Atorvastatin 40 Mg Tablet PO 40 mg DAILY TIM Administration Dextrose 12.5 gm 09/03/23 19:03 Dextrose 50% 25 Gm/50 Ml Syringe IV PUSH PRN PRN Hypoglycemia Protocol Ferrous Sulfate 325 mg 09/03/23 09:00 09/04/23 09:01 Ferrous Sulfate [address] BY MOUTH 325 mg DAILY TIM Administration Furosemide 40 mg 09/03/23 09:00 09/04/23 09:04 Furosemide Inj 40 Mg/4 Ml Vial IV PUSH 40 mg Q12HR TIM Administration Glucagon 1 mg 09/03/23 19:03 Glucagon For
--- NOTE | 2023-09-04 10:48 | P.PNNP_ITS ---
Progress Note: A&P Assessment and Plan (1) Chronic kidney disease, stage IV (severe): Code(s): N18.4 - Chronic kidney disease, stage 4 (severe) Status: Chronic Assessment and Plan: * creatinine has fluctuated to extremes in the last year * in the last 6 months, seems to be running around 2.5 - 3.2mg/dl * due to a combination of diabetes, vascular disease, and cardiorenal syndrome with the need for chronic diuretic therapy * her creatinine has run as high as 4.0mg/dl on previous hospitalizations (2) Bilateral edema of lower extremity: Code(s): R60.0 - Localized edema Status: Chronic Assessment and Plan: * acute on chronic * due to #3 and #4 * ongoing diuresis * may have to accept to degree of LE edema no matter what... (3) Ischemic cardiomyopathy: Code(s): I25.5 - Ischemic cardiomyopathy Status: Chronic Assessment and Plan: * as already documented by previous/recent Echo * follows with Cardiology at [facility] * Cardiology following (4) Acute CHF (congestive heart failure): Qualifiers: Heart failure type: unspecified Qualified Code(s): I50.9 - Heart failure, unspecified Code(s): I50.9 - Heart failure, unspecified Status: Acute Assessment and Plan: * on IV diuretics * follow I/Os, daily weights,and respiratory status * Cardiology following (5) T2DM (type 2 diabetes mellitus): Code(s): E11.9 - Type 2 diabetes mellitus without complications Status: Chronic Assessment and Plan: * follow accu-cheks * glycemic control per hospitalists Will continue to follow. Subjective Date/time seen: 09/04/23 10:48 Interval history: Follow-up for chronic renal insufficiency/kidney disease Creatinine slightly worse with ongoing therapy/interventions and diuresis has not been very successful; Cardiology recommending transfer to [facility] where her watch engine operator are located for more directed therapy. Exam Narrative: General: middle aged female in mild distress Heart: normal S1 and S2; no rub Lungs: bibasilar crackles Abdomen: soft, nontender, nondistended, positive bowel sounds Extremities: no cyanosis or clubbing; 2+ edema Skin: warm and dry Objective Data Vital Signs Vital Signs: Vital Signs Temp Pulse Resp BP Pulse Ox O2 Del Method 09/04/23 10:00 102 H 09/04/23 08:00 102 H 09/04/23 09:03 98 09/04/23 07:50 98.0 F 100 16 125/81 97 09/04/23 06:00 84 09/04/23 04:00 108 H 09/04/23 04:00 109 H 20 99 Room Air 09/04/23 02:00 105 H 09/04/23 00:00 106 H 09/03/23 22:00 107 H 09/03/23 20:00 108 H 09/04/23 00:00 106 H 20 98 Room Air 09/03/23 20:00 106 H 20 100 Room Air 09/04/23 03:38 97.1 F L 109 H 20 155/98 H 99 09/03/23 23:18 97.7 F 106 H 20 130/69 98 09/03/23 20:16 97.8 F 106 H 20 132/89 100 09/03/23 18:00 105 H Intake/Output Intake/Output: Intake & Output 09/01/23 09/02/23 09/03/23 09/04/23 23:59 23:59 23:59 23:59 Intake Total 245 Output Total 225 600 Balance 20 -600 Meds/Results Medications:
[2023-09-04] MEDS: NITROGLYCERIN OINTMENT 1 INCH DOSE TRANSDERM (11:14)
[2023-09-04] MEDS: MORPHINE SULFATE (*CRX) 2 MG/ML INJ 1 MG IV PUSH (11:35)
[2023-09-04 12:11] LABS: Glucose Point of Care 344 mg/dl (65-105)
[2023-09-04 12:11] LABS: Glucose Point of Care 346 mg/dl (65-105)
[2023-09-04] MEDS: NITROGLYCERIN SL 0.4 MG TABLET SUBLINGUAL (12:40)
[2023-09-04] MEDS: HEPARIN SOD/D5W 100 UNITS/ML 25,000 UNITS/250 ML BAG 7 UNITS IV CONT (13:18)
[2023-09-04 13:23] LABS: INR 1.4; Prothrombin Time 17.8 Seconds (11.1-14.7)
[2023-09-04 13:25] LABS: Partial Thromboplastin Time 29.8 SECONDS (22.3-36.8)
--- NOTE | 2023-09-04 15:53 | PM.DS ---
DS: Admitting Diagnosis Discharge Date 09/04/23 Admitting Diagnosis 1. Leg swelling. Likely 2/2 CHF 2. CHFrEF, diastolic HF; EF 15-20% 3. NSTEMI; Elevated troponin. likely 2/2 demand ischemia 4. Hx of CAD. 5. Obesity, BMI 26. 6. CKD 7. IDDM 8. KAYDEN. 9. Dyslipidemia 10.Hypertension. 11. Hyponatremia. Improving DS: Discharge Diagnosis Discharge Diagnosis (1) Ischemic cardiomyopathy: Code(s): I25.5 - Ischemic cardiomyopathy Status: Acute (2) CAD (coronary artery disease): Code(s): I25.10 - Atherosclerotic heart disease of [place] coronary artery without angina pectoris Status: Acute (3) T2DM (type 2 diabetes mellitus): Code(s): E11.9 - Type 2 diabetes mellitus without complications Status: Acute Assessment and Plan: Holding empagliflozin GFR less than 25% Continue insulin Accu-Cheks AC and HS (4) CKD (chronic kidney disease): Qualifiers: Chronic kidney disease stage: unspecified stage Qualified Code(s): N18.9 - Chronic kidney disease, unspecified Code(s): N18.9 - Chronic kidney disease, unspecified Status: Acute (5) Bilateral edema of lower extremity: Code(s): R60.0 - Localized edema Status: Acute (6) Elevated troponin: Code(s): R79.89 - Other specified abnormal findings of blood chemistry Status: Acute Assessment and Plan: Admit to IMU Patient started on heparin drip Cardiology consult Supportive care Continue to monitor (7) Acute CHF (congestive heart failure): Qualifiers: Heart failure type: unspecified Qualified Code(s): I50.9 - Heart failure, unspecified Code(s): I50.9 - Heart failure, unspecified Status: Acute Assessment and Plan: Echocardiogram in a.m. Daily intake and output Diurese as needed Cardiology: She does not have any left-sided failure spent a long time explaining to the patient and her family that a patient in her situation would many times have to accept some degree of chronic edema as we sometimes cannot resolve all of this.? In addition to this we discussed that it would be more beneficial for her to present to hospital where her established practice consultant are available.? She indicates the reason she came here is because she cannot afford CAB care over to [facility] and her is ill who has been unable to take her over there.? Will follow her case with you while she is at the hospital.? She is being held NPO which is her other principal complaint.? Presumably this is because her troponin level is elevated.? I am not planning an angiogram in this situation? (8) Hyponatremia: Code(s): E87.1 - Hypo-osmolality and hyponatremia Status: Acute Assessment and Plan: Patient is on loop diuretics Continue to monitor (9) Acute renal failure: Code(s): N17.9 - Acute kidney failure, unspecified Assessment and Plan: Will obtain renal ultrasound Likely pre renal azotemia Will obtain Nephrology consult Patient on diuretics at home Plan 1. Leg swelling. Likely 2/2 CHF 2. CHFrEF, diastolic HF; EF 15-20% 3. NSTEMI; Elevated troponin. likely 2/2 demand ischemia 4. Hx of CAD. 5. Obesity, BMI 26. 6. CKD 7. IDDM 8. KAYDEN. 9. Dyslipidemia 10.Hypertension. DS: Summary Hospital Course Hospital Course: Elisabeth Herrera is a 47-year-old female with past medical history significant for hypertension, diabetes mellitus.? Patient presents to the emergency room due to worsening bilateral lower extremity swelling denies shortness of breath, denies chest pain, no palpitations no dizziness no lightheadedness no PND no orthopnea no fevers no rigors no chills had recent admission to outside facility.? Patient states he has had poor appetite poor per orally intake and high blood sugars.? Preliminary workup was significant for Bilateral lower extremity ultrasound Doppler was negative for acute DVT, a chest x-ray showed pulmonary edema.?
--- NOTE | 2023-09-04 17:19 | PC.NURSE ---
Pt left with EMS at 1718, destination [id number]. Report was called to [facility] Roe. Called and notified pt was enroute. Vital signs taken prior to leaving, documented. heparin gtt infusing
[2023-09-04 17:28] LABS: Glucose Point of Care 309 mg/dl (65-105)
== END 2023-09-04 17:18 | disposition short-term general hospital (02) ==
LOC: ANHED 20:04 → ANHIMU 09-03 02:24
PROVIDERS: Internal Medicine Cardiovascular Disease; Admitting Provider Internal Medicine; Emergency Provider Physician Assistant; Visit Provider Internal Medicine
DX: I21.4 Non-ST elevation (NSTEMI) myocardial infarction (principal); I25.5 Ischemic cardiomyopathy; I12.9 Hypertensive chronic kidney disease with stage 1 through stage 4 chronic kidney disease, or unspecified chronic kidney disease; I50.9 Heart failure, unspecified; N17.9 Acute kidney failure, unspecified; I25.10 Atherosclerotic heart disease of native coronary artery without angina pectoris; R06.02 Shortness of breath; E87.1 Hypo-osmolality and hyponatremia; R60.0 Localized edema; E11.22 Type 2 diabetes mellitus with diabetic chronic kidney disease; N18.9 Chronic kidney disease, unspecified; E78.5 Hyperlipidemia, unspecified; Z79.84 Long term (current) use of oral hypoglycemic drugs; Z79.4 Long term (current) use of insulin; Z79.82 Long term (current) use of aspirin; D50.9 Iron deficiency anemia, unspecified
CPT/HCPCS: 36415; 71046; 76775; 78582; 80053; 82948; 83735; 83880; 84484; 85025; 85610; 85730; 93005; 93970; 96366; 96367; 96374; 96375; 96376; 99285; A9270; A9540; A9558; C8929; G0378; G0379; J1265; J1644; J1815; J1940; J2270; J2405; Q9957